=== PATIENT | male | born 1955 | race Caucasian/White ===

== ENCOUNTER 2018-01-25 16:15 | Inpatient (IN) | payer OTHER ==
[~2018-01-25] VITALS: Ht 180.3 cm; Wt 183.4 kg
[~2018-01-25 16:15] MED LIST: AMLO5TAB2 PO; ASPI-496 PO; GLIM4TAB2 PO; ISOS60TA36 PO; LIRA0.6P2 INJ; LISI-167 PO; METO50TA82 PO; SIMV10TA3 PO
[2018-01-25] MEDS ORDERED: ONDANSETRON ODT 4 MG PO PRN (16:30)
[2018-01-25] MEDS ORDERED: ALLO300T PO (16:32)
[2018-01-25] MEDS ORDERED: ATOR40TA78 PO (16:32)
[2018-01-25] MEDS ORDERED: ONDANSETRON ODT 4 MG ONE (17:00)
[2018-01-25] MEDS ORDERED: MORPHINE SULFATE 4 MG/ML, 1ML ONE ×2 (17:00→18:19)
[2018-01-25] MEDS: MORPHINE SULFATE 4 MG/ML, 1ML IVPush PRN ×2 (17:02→18:25)
[2018-01-25] MEDS ORDERED: ETOMIDATE 20 MG/10 ML ONE ×2 (17:11→18:49)
[2018-01-25] MEDS ORDERED: ETOMIDATE 20 MG/10 ML IVPush ONE ×3 (17:30→19:00)
[2018-01-25] MEDS ORDERED: MIDAZOLAM 1 MG/ML, 2ML ONE (18:49)
[2018-01-25] MEDS ORDERED: HYDROmorphone 1 MG/ML, 1ML IVPush PRN (19:00)
[2018-01-25] MEDS ORDERED: MIDAZOLAM 1 MG/ML, 2ML IVPush ONE (19:00)
[2018-01-25] MEDS ORDERED: NS + 20MEQ KCL 1,000 ML IV SCH (22:31)
[2018-01-25] MEDS ORDERED: ONDANSETRON 2MG/ML, 2ML IVPush PRN (23:00)
[2018-01-25] MEDS ORDERED: morphine SULFATE 10 MG/ML, 1ML IVPush PRN (23:00)
[2018-01-25] MEDS ORDERED: DOCUSATE 100 MG CAPSULE PO PRN (23:00)
[2018-01-25] MEDS ORDERED: PROPOFOL 10 MG/ML, 20ML IVPush ONE (23:00)
[2018-01-25] MEDS ORDERED: POLYETHYLENE GLYCOL 17 GM PACKET PO PRN (23:00)
[2018-01-25] MEDS ORDERED: ACETAMINOPHEN 325 MG TABLET PO PRN (23:00)
[2018-01-25] MEDS ORDERED: PROPOFOL 10 MG/ML, 20ML ONE ×2 (23:07)
[2018-01-26] MEDS ORDERED: PROPOFOL 10 MG/ML, 20ML IVPush ONE
[2018-01-26] MEDS ORDERED: HYDROmorphone 2 MG/ML, 1ML ONE (00:05)
[2018-01-26 01:00] VITALS: BP 120/55
[2018-01-26] MEDS: METOPROLOL TARTRATE 50 MG TABLET PO SCH ×3 (01:00→20:38)
[2018-01-26] MEDS: HYDROcodone/APAP 5/325 TABLET PO PRN ×4 (06:35→23:15)
[2018-01-26] MEDS: INSULIN LISPRO 100 UNITS/ML, PEN SQ-INSULIN SCH ×4 (06:40→20:35)
[2018-01-26 07:06] VITALS: BP 124/77
[2018-01-26] MEDS: GLIMEPIRIDE 4 MG TABLET PO SCH (08:03)
[2018-01-26] MEDS: LISINOPRIL 10 MG TABLET PO SCH (08:03)
[2018-01-26] MEDS: SENNA/DOCUSATE TABLET PO SCH (08:03)
[2018-01-26] MEDS: ALLOPURINOL 300 MG TABLET PO SCH (08:03)
[2018-01-26] MEDS: ISOSORBIDE MONONITRATE ER 60 MG TABLET PO SCH (08:04)
[2018-01-26] MEDS: LIRAGLUTIDE 1.8 MG INJ SCH (08:04)
[2018-01-26 12:22] VITALS: BP 111/65
[2018-01-26] MEDS: HEPARIN 5,000 UNITS/ML, 1ML SQ SCH ×2 (15:39→20:38)
[2018-01-26 16:47] LABS: BASOPHILS # (AUTO) 0.03 x10^3/uL (0-0.1); BASOPHILS % (AUTO) 0 % (0-1); EOSINOPHILS # (AUTO) 0.54 x10^3/uL (0-0.4); EOSINOPHILS % (AUTO) 5 % (1-7); LYMPHOCYTES # (AUTO) 2.33 x10^3/uL (1-3.4); LYMPHOCYTES % (AUTO) 20 % (22-44); MD NO; MEAN CORPUSCULAR HEMOGLOBIN 30.4 pg (27.5-34.5); MEAN CORPUSCULAR HGB CONC 33.1 g/dL (33.2-36.2); MEAN CORPUSCULAR VOLUME 91.8 fL (81-97); MEAN PLATELET VOLUME 7.5 fL (7.4-10.4); MONOCYTES # (AUTO) 1.16 x10^3/uL (0.2-0.8); MONOCYTES % (AUTO) 10 % (2-9); NEUTROPHILS # (AUTO) 7.82 x10^3/uL (1.8-6.8); NEUTROPHILS % (AUTO) 66 % (42-75); PLATELET COUNT 179 x10^3/uL (130-400); RED BLOOD COUNT 4.41 x10^6/uL (4.38-5.82); RED CELL DISTRIBUTION WIDTH 14.4 % (9.4-14.8)
[2018-01-26 16:58] LABS: ANION GAP 6 mmol/L (5-15); CALCIUM 8.3 mg/dL (8.5-10.1); CHLORIDE 110 mmol/L (98-107); CREATININE 2.03 mg/dL (0.7-1.3)
[2018-01-26 19:03] VITALS: BP 122/68
[2018-01-26] MEDS: ATORVASTATIN 40 MG TABLET PO SCH (20:38)
[2018-01-27 00:51] VITALS: BP 132/74
[2018-01-27 05:06] LABS: BASOPHILS # (AUTO) 0.06 x10^3/uL (0-0.1); BASOPHILS % (AUTO) 1 % (0-1); EOSINOPHILS % (AUTO) 5 % (1-7); LYMPHOCYTES # (AUTO) 2.53 x10^3/uL (1-3.4); LYMPHOCYTES % (AUTO) 21 % (22-44); MD NO; MEAN CORPUSCULAR HEMOGLOBIN 30.5 pg (27.5-34.5); MEAN CORPUSCULAR HGB CONC 33.3 g/dL (33.2-36.2); MEAN CORPUSCULAR VOLUME 91.5 fL (81-97); MEAN PLATELET VOLUME 7.8 fL (7.4-10.4); MONOCYTES # (AUTO) 1.34 x10^3/uL (0.2-0.8); MONOCYTES % (AUTO) 11 % (2-9); NEUTROPHILS # (AUTO) 7.84 x10^3/uL (1.8-6.8); NEUTROPHILS % (AUTO) 63 % (42-75); PLATELET COUNT 175 x10^3/uL (130-400); RED BLOOD COUNT 4.26 x10^6/uL (4.38-5.82); RED CELL DISTRIBUTION WIDTH 14.5 % (9.4-14.8)
[2018-01-27 05:17] LABS: CHLORIDE 109 mmol/L (98-107)
[2018-01-27 05:38] LABS: ALANINE AMINOTRANSFERASE 21 U/L (12-78); ALBUMIN 3.4 g/dL (3.4-5.0); ALKALINE PHOSPHATASE 79 U/L (45-117); ANION GAP 9 mmol/L (5-15); BILIRUBIN,TOTAL 1.4 mg/dL (0.2-1.0); CALCIUM 8.7 mg/dL (8.5-10.1); CREATININE 1.97 mg/dL (0.7-1.3); TOTAL PROTEIN 6.7 g/dL (6.4-8.2)
[2018-01-27] MEDS: HEPARIN 5,000 UNITS/ML, 1ML SQ SCH ×3 (06:03→23:05)
[2018-01-27] MEDS: INSULIN LISPRO 100 UNITS/ML, PEN SQ-INSULIN SCH ×4 (06:16→21:00)
[2018-01-27 07:05] LABS: HEMOGLOBIN A1C 6.5 % (4.2-6.3)
[2018-01-27] MEDS: LIRAGLUTIDE 1.8 MG INJ SCH (08:16)
[2018-01-27] MEDS: LISINOPRIL 10 MG TABLET PO SCH (08:16)
[2018-01-27] MEDS: ALLOPURINOL 300 MG TABLET PO SCH (08:16)
[2018-01-27] MEDS: ISOSORBIDE MONONITRATE ER 60 MG TABLET PO SCH (08:16)
[2018-01-27] MEDS: GLIMEPIRIDE 4 MG TABLET PO SCH (08:16)
[2018-01-27] MEDS: SENNA/DOCUSATE TABLET PO SCH (08:16)
[2018-01-27] MEDS: METOPROLOL TARTRATE 50 MG TABLET PO SCH ×2 (08:16→21:00)
[2018-01-27 09:20] VITALS: BP 101/66
[2018-01-27] MEDS ORDERED: GABAPENTIN 300 MG CAPSULE PO ONE (10:00)
[2018-01-27] MEDS ORDERED: ONDANSETRON ODT 8 MG PO ONE (10:00)
[2018-01-27] MEDS ORDERED: ACETAMINOPHEN 500 MG TABLET PO ONE (10:00)
[2018-01-27] MEDS ORDERED: OxyconTIN ER 20 MG TAB.ER PO ONE (10:00)
[2018-01-27] MEDS ORDERED: FENTANYL PF 250 MCG/5ML ONE (10:39)
[2018-01-27] MEDS ORDERED: MIDAZOLAM 1 MG/ML, 2ML ONE (10:39)
[2018-01-27] MEDS ORDERED: SUCCINYLCHOLINE 20 MG/ML, 10ML ONE (10:40)
[2018-01-27] MEDS ORDERED: LIDOCAINE-MPF 2% ,5ML ONE (10:41)
[2018-01-27] MEDS ORDERED: PROPOFOL 10 MG/ML, 20ML ONE (10:41)
[2018-01-27] MEDS ORDERED: CEFAZOLIN 1,000 MG ONE ×3 (10:42)
[2018-01-27] MEDS ORDERED: DEXAMETHASONE 4 MG/ML, 1ML ONE ×3 (10:44→14:57)
[2018-01-27] MEDS ORDERED: BUPIVACAINE/PF 0.25% ONE ×2 (10:45)
[2018-01-27] MEDS ORDERED: cloniDINE/PF 100 MCG/ML, 10 ML ONE (10:49)
[2018-01-27] MEDS ORDERED: OxyconTIN ER 10 MG TAB.ER ONE (11:04)
[2018-01-27] MEDS ORDERED: LIDOCAINE-MPF 1%, 2ML ONE (11:07)
[2018-01-27] MEDS ORDERED: LABETALOL 5MG/ML 40ML VIAL ONE (11:46)
[2018-01-27] MEDS ORDERED: LABETALOL 5MG/ML, 20ML IV PRN (12:30)
[2018-01-27] MEDS ORDERED: FENTANYL PF 100 MCG/2ML IV PRN (12:30)
[2018-01-27] MEDS ORDERED: PROMETHAZINE 25 MG/ML, 1ML IV PRN (12:30)
[2018-01-27] MEDS ORDERED: MEPERIDINE/PF 25MG/0.5ML IVPush PRN (12:30)
[2018-01-27] MEDS ORDERED: HALOPERIDOL 5 MG/ML IV PRN (12:30)
[2018-01-27] MEDS ORDERED: OXYcodone 5 MG/5 ML ORAL.SOL UDC PO PRN (12:30)
[2018-01-27] MEDS ORDERED: hydrALAzine 20 MG/ML, 1ML IV PRN (12:30)
[2018-01-27] MEDS ORDERED: MORPHINE SULFATE 4 MG/ML, 1ML IVPush PRN (12:30)
[2018-01-27] MEDS ORDERED: FENTANYL PF 100 MCG/2ML ONE ×2 (12:40→13:41)
[2018-01-27 15:30] VITALS: BP 105/62
[2018-01-27 19:16] VITALS: BP 109/54
[2018-01-27] MEDS: CEFAZOLIN PMX 2GM/50ML 100 ML IVPB SCH (20:05)
[2018-01-27] MEDS: ATORVASTATIN 40 MG TABLET PO SCH (21:46)
[2018-01-28] VITALS: BP 105/61
[2018-01-28 03:26] VITALS: BP 106/55
[2018-01-28] MEDS: CEFAZOLIN PMX 2GM/50ML 100 ML IVPB SCH (04:13)
[2018-01-28 05:57] LABS: MEAN CORPUSCULAR HEMOGLOBIN 30.7 pg (27.5-34.5); MEAN CORPUSCULAR HGB CONC 33.7 g/dL (33.2-36.2); MEAN CORPUSCULAR VOLUME 91.1 fL (81-97); RED BLOOD COUNT 4.05 x10^6/uL (4.38-5.82); RED CELL DISTRIBUTION WIDTH 14.8 % (9.4-14.8)
[2018-01-28 06:07] LABS: CHLORIDE 107 mmol/L (98-107)
[2018-01-28 06:15] LABS: ANION GAP 12 mmol/L (5-15); CALCIUM 8.5 mg/dL (8.5-10.1); CREATININE 3.54 mg/dL (0.7-1.3); MEAN PLATELET VOLUME 7.5 fL (7.4-10.4); PLATELET COUNT 187 x10^3/uL (130-400)
[2018-01-28 06:17] LABS: BASOPHILS # (AUTO) 0.01 x10^3/uL (0-0.1); BASOPHILS % (AUTO) 0 % (0-1); EOSINOPHILS % (AUTO) 0 % (1-7); LYMPHOCYTES # (AUTO) 0.93 x10^3/uL (1-3.4); LYMPHOCYTES % (AUTO) 5 % (22-44); MD SCAN; MONOCYTES # (AUTO) 1.71 x10^3/uL (0.2-0.8); MONOCYTES % (AUTO) 10 % (2-9); NEUTROPHILS # (AUTO) 15.22 x10^3/uL (1.8-6.8); NEUTROPHILS % (AUTO) 85 % (42-75)
[2018-01-28] MEDS: HEPARIN 5,000 UNITS/ML, 1ML SQ SCH ×2 (06:25→15:31)
[2018-01-28] MEDS: INSULIN LISPRO 100 UNITS/ML, PEN SQ-INSULIN SCH ×4 (07:00→20:57)
[2018-01-28 07:58] VITALS: BP 102/58
[2018-01-28] MEDS: SODIUM BICARBONATE 8.4% 75 MEQ in DEXTROSE 5% 1,000 ML IV SCH (08:47)
[2018-01-28] MEDS: ISOSORBIDE MONONITRATE ER 60 MG TABLET PO SCH (08:48)
[2018-01-28] MEDS: SENNA/DOCUSATE TABLET PO SCH (08:48)
[2018-01-28] MEDS: METOPROLOL TARTRATE 50 MG TABLET PO SCH ×2 (08:48→20:49)
[2018-01-28] MEDS: GLIMEPIRIDE 4 MG TABLET PO SCH (08:49)
[2018-01-28] MEDS: LIRAGLUTIDE 1.8 MG INJ SCH (08:49)
[2018-01-28 10:42] LABS: CULTURE INDICATED? YES; MICROSCOPIC INDICATED
[2018-01-28 10:47] LABS: CHLORIDE,URINE RANDOM 36 mmol/L; POTASSIUM,URINE RANDOM 38 mmol/L; SODIUM,URINE RANDOM 47 mmol/L; TOTAL PROTEIN,URINE RANDOM 45 mg/dL (0-12)
[2018-01-28 12:49] VITALS: BP 112/56
[2018-01-28 20:00] VITALS: BP 118/49
[2018-01-28] MEDS: ATORVASTATIN 40 MG TABLET PO SCH (20:49)
[2018-01-29] MEDS: HEPARIN 5,000 UNITS/ML, 1ML SQ SCH ×3 (00:40→16:04)
[2018-01-29] MEDS: SODIUM BICARBONATE 8.4% 75 MEQ in DEXTROSE 5% 1,000 ML IV SCH ×2 (00:41→13:55)
[2018-01-29 02:00] VITALS: BP 154/71
[2018-01-29 05:59] LABS: BASOPHILS # (AUTO) 0.05 x10^3/uL (0-0.1); BASOPHILS % (AUTO) 0 % (0-1); EOSINOPHILS # (AUTO) 0.04 x10^3/uL (0-0.4); EOSINOPHILS % (AUTO) 0 % (1-7); LYMPHOCYTES # (AUTO) 1.78 x10^3/uL (1-3.4); LYMPHOCYTES % (AUTO) 12 % (22-44); MD NO; MEAN CORPUSCULAR HEMOGLOBIN 30.3 pg (27.5-34.5); MEAN CORPUSCULAR HGB CONC 33.1 g/dL (33.2-36.2); MEAN CORPUSCULAR VOLUME 91.6 fL (81-97); MEAN PLATELET VOLUME 7.7 fL (7.4-10.4); MONOCYTES # (AUTO) 1.14 x10^3/uL (0.2-0.8); MONOCYTES % (AUTO) 8 % (2-9); NEUTROPHILS # (AUTO) 11.71 x10^3/uL (1.8-6.8); NEUTROPHILS % (AUTO) 80 % (42-75); PLATELET COUNT 198 x10^3/uL (130-400)
[2018-01-29 06:11] LABS: ANION GAP 9 mmol/L (5-15); CALCIUM 8.1 mg/dL (8.5-10.1); CHLORIDE 108 mmol/L (98-107)
[2018-01-29 06:16] LABS: ALANINE AMINOTRANSFERASE 37 U/L (12-78); ALKALINE PHOSPHATASE 68 U/L (45-117); BILIRUBIN,TOTAL 1.1 mg/dL (0.2-1.0); CREATININE 2.62 mg/dL (0.7-1.3); TOTAL PROTEIN 6.4 g/dL (6.4-8.2)
[2018-01-29 06:49] VITALS: BP 106/65
[2018-01-29] MEDS: INSULIN LISPRO 100 UNITS/ML, PEN SQ-INSULIN SCH ×4 (07:00→21:36)
[2018-01-29] MEDS: ISOSORBIDE MONONITRATE ER 60 MG TABLET PO SCH (07:51)
[2018-01-29] MEDS: METOPROLOL TARTRATE 50 MG TABLET PO SCH ×2 (07:51→21:34)
[2018-01-29] MEDS: LIRAGLUTIDE 1.8 MG INJ SCH (07:51)
[2018-01-29] MEDS: GLIMEPIRIDE 4 MG TABLET PO SCH (07:51)
[2018-01-29] MEDS: SENNA/DOCUSATE TABLET PO SCH (07:51)
[2018-01-29] MEDS: CEFTRIAXONE PMX 2GM/50ML 50 ML IV SCH (10:57)
[2018-01-29 13:08] VITALS: BP 111/58
[2018-01-29 19:45] VITALS: BP_SYST 112; BP_SYST 138; BP_DIAS 70; BP_DIAS 80
[2018-01-29] MEDS: ATORVASTATIN 40 MG TABLET PO SCH (21:34)
[2018-01-30] MEDS: HEPARIN 5,000 UNITS/ML, 1ML SQ SCH ×2 (01:16→09:11)
[2018-01-30 01:19] VITALS: BP 143/77
[2018-01-30] MEDS: SODIUM BICARBONATE 8.4% 75 MEQ in DEXTROSE 5% 1,000 ML IV SCH (06:23)
[2018-01-30] MEDS: INSULIN LISPRO 100 UNITS/ML, PEN SQ-INSULIN SCH ×2 (06:31→11:00)
[2018-01-30 07:09] VITALS: BP 148/76
[2018-01-30 08:38] LABS: BASOPHILS # (AUTO) 0.04 x10^3/uL (0-0.1); BASOPHILS % (AUTO) 0 % (0-1); EOSINOPHILS # (AUTO) 0.32 x10^3/uL (0-0.4); EOSINOPHILS % (AUTO) 3 % (1-7); LYMPHOCYTES # (AUTO) 2.47 x10^3/uL (1-3.4); LYMPHOCYTES % (AUTO) 20 % (22-44); MD NO; MEAN CORPUSCULAR HEMOGLOBIN 30.5 pg (27.5-34.5); MEAN CORPUSCULAR HGB CONC 33.6 g/dL (33.2-36.2); MEAN CORPUSCULAR VOLUME 90.8 fL (81-97); MEAN PLATELET VOLUME 6.9 fL (7.4-10.4); MONOCYTES # (AUTO) 1.28 x10^3/uL (0.2-0.8); MONOCYTES % (AUTO) 10 % (2-9); NEUTROPHILS # (AUTO) 8.33 x10^3/uL (1.8-6.8); NEUTROPHILS % (AUTO) 67 % (42-75); PLATELET COUNT 222 x10^3/uL (130-400); RED BLOOD COUNT 4.02 x10^6/uL (4.38-5.82); RED CELL DISTRIBUTION WIDTH 14.5 % (9.4-14.8)
[2018-01-30 08:48] LABS: ANION GAP 6 mmol/L (5-15); CALCIUM 8.4 mg/dL (8.5-10.1); CHLORIDE 108 mmol/L (98-107); CREATININE 1.89 mg/dL (0.7-1.3)
[2018-01-30] MEDS: LIRAGLUTIDE 1.8 MG INJ SCH (09:00)
[2018-01-30] MEDS: CEFTRIAXONE PMX 2GM/50ML 50 ML IV SCH (09:11)
[2018-01-30] MEDS: ISOSORBIDE MONONITRATE ER 60 MG TABLET PO SCH (09:12)
[2018-01-30] MEDS: METOPROLOL TARTRATE 50 MG TABLET PO SCH (09:12)
[2018-01-30] MEDS: GLIMEPIRIDE 4 MG TABLET PO SCH (09:12)
[2018-01-30] MEDS: SENNA/DOCUSATE TABLET PO SCH (09:12)
[2018-01-30] MEDS ORDERED: CIPR500T87 PO (09:32)
[2018-01-30 10:39] VITALS: BP 128/70
[2018-01-30] MEDS ORDERED: HYDR-3307 PO (12:47)
== END 2018-01-30 12:55 | disposition home or self-care (01) | DRG 493 ==
LOC: ED 16:51 → SUATTDRO 22:12 → EDIP 22:18 → 4NOR 01-26 00:24 → DCLOUNGE 01-30 12:44
PROVIDERS: ADMIT Family Medicine; ATTEND Family Medicine
PROC: 2W3QX1Z Immobilization of Right Lower Leg using Splint (ICD-10-PCS; 2018-01-25)
PROC: 5A09457 Assistance with Respiratory Ventilation, 24-96 Consecutive Hours, Continuous Positive Airway Pressure (ICD-10-PCS; 2018-01-27)
PROC: 0QSJ04Z Reposition Right Fibula with Internal Fixation Device, Open Approach (ICD-10-PCS; principal; 2018-01-27 11:45)
DX: S82.851A Displaced trimalleolar fracture of right lower leg, initial encounter for closed fracture (principal); E87.2 Acidosis; N17.9 Acute kidney failure, unspecified; N39.0 Urinary tract infection, site not specified; Z68.43 Body mass index [BMI] 50.0-59.9, adult; B96.89 Other specified bacterial agents as the cause of diseases classified elsewhere; E11.22 Type 2 diabetes mellitus with diabetic chronic kidney disease; E11.40 Type 2 diabetes mellitus with diabetic neuropathy, unspecified; E66.01 Morbid (severe) obesity due to excess calories; E78.5 Hyperlipidemia, unspecified; G47.33 Obstructive sleep apnea (adult) (pediatric); I12.9 Hypertensive chronic kidney disease with stage 1 through stage 4 chronic kidney disease, or unspecified chronic kidney disease; I27.20 Pulmonary hypertension, unspecified; N18.9 Chronic kidney disease, unspecified; R09.02 Hypoxemia; R32 Unspecified urinary incontinence; S93.04XA Dislocation of right ankle joint, initial encounter; Z72.0 Tobacco use; W18.39XA Other fall on same level, initial encounter; Y93.89 Activity, other specified; Y92.89 Other specified places as the place of occurrence of the external cause; Y99.8 Other external cause status
CPT/HCPCS: 27840; 36415; 76000; 76001; 76770; 80048; 80053; 81001; 82436; 82962; 83036; 83735; 84100; 84133; 84156; 84300; 85025; 87040; 87077; 87086; 87186; 93005; 94660; 96374; 96376; 99152; 99153; C1713; J0690; J0696; J1100; J1170; J1644; J2250; J2704; J3010; J3480; J3490; J7070; Q0162; C1769; J0330; J0735; J2270

== ENCOUNTER 2020-01-31 18:33 | Inpatient (IN) | payer MEDICARE ==
[~2020-01-31] VITALS: Ht 182.9 cm; Wt 193.3 kg
[~2020-01-31 18:33] MED LIST changes: +ALLO300T PO; +AMLO-150 PO; -AMLO5TAB2 PO; +ATOR40TA78 PO; +CIPR500T87 PO; -GLIM4TAB2 PO; +GLIM4TAB8 PO; +HYDR-3246 PO; +SIMV10TA18 PO; -SIMV10TA3 PO
[2020-01-31 21:00] VITALS: BP 157/70
[2020-01-31] MEDS ORDERED: ONDANSETRON 2MG/ML, 2ML IVPush PRN (22:30)
[2020-01-31] MEDS ORDERED: POLYETHYLENE GLYCOL 17 GM PACKET PO PRN (22:30)
[2020-01-31] MEDS: INSULIN LISPRO 100 UNITS/ML, PEN SQ-INSULIN SCH (22:30)
[2020-01-31] MEDS ORDERED: BISACODYL 10 MG SUPP PR PRN (22:30)
[2020-01-31] MEDS ORDERED: ACETAMINOPHEN 325 MG TABLET PO PRN (22:30)
[2020-01-31] MEDS: morphine SULFATE 10 MG/ML, 1ML IVPush PRN (22:57)
[2020-01-31] MEDS: METOPROLOL TARTRATE 50 MG TAB PO SCH (22:59)
[2020-01-31] MEDS: NS + 20MEQ KCL 1,000 ML IV SCH (22:59)
[2020-01-31 23:21] LABS: MEAN CORPUSCULAR HGB CONC 33.1 g/dL (33.2-36.2); MEAN CORPUSCULAR VOLUME 90.5 fL (81-97); MEAN PLATELET VOLUME 7.2 fL (7.4-10.4); PLATELET COUNT 204 x10^3/uL (130-400); RED BLOOD COUNT 4.23 x10^6/uL (4.38-5.82); RED CELL DISTRIBUTION WIDTH 15.2 % (9.4-14.8)
[2020-01-31 23:29] LABS: ALANINE AMINOTRANSFERASE 14 U/L (12-78); ANION GAP 8 mmol/L (5-15); CALCIUM 7.7 mg/dL (8.5-10.1); CHLORIDE 105 mmol/L (98-107); CREATININE 2.96 mg/dL (0.7-1.3)
[2020-01-31 23:31] LABS: ALKALINE PHOSPHATASE 94 U/L (45-117); BILIRUBIN,TOTAL 1.1 mg/dL (0.2-1.0); TOTAL PROTEIN 6.9 g/dL (6.4-8.2)
[2020-01-31 23:51] LABS: BASOPHILS # (AUTO) 0.04 x10^3/uL (0-0.1); BASOPHILS % (AUTO) 0 % (0-1); EOSINOPHILS # (AUTO) 0.06 x10^3/uL (0-0.4); EOSINOPHILS % (AUTO) 0 % (1-7); LYMPHOCYTES # (AUTO) 1.82 x10^3/uL (1-3.4); LYMPHOCYTES % (AUTO) 13 % (22-44); MD SCAN; MONOCYTES # (AUTO) 1.31 x10^3/uL (0.2-0.8); MONOCYTES % (AUTO) 9 % (2-9); NEUTROPHILS # (AUTO) 11.11 x10^3/uL (1.8-6.8); NEUTROPHILS % (AUTO) 78 % (42-75)
[2020-02-01 01:29] VITALS: BP 113/63
[2020-02-01] MEDS: morphine SULFATE 10 MG/ML, 1ML IVPush PRN ×4 (02:03→20:34)
[2020-02-01 06:18] LABS: MEAN CORPUSCULAR HGB CONC 32.8 g/dL (33.2-36.2); MEAN CORPUSCULAR VOLUME 91.6 fL (81-97); MEAN PLATELET VOLUME 7.6 fL (7.4-10.4); PLATELET COUNT 191 x10^3/uL (130-400); RED BLOOD COUNT 4.14 x10^6/uL (4.38-5.82); RED CELL DISTRIBUTION WIDTH 14.9 % (9.4-14.8)
[2020-02-01 06:29] LABS: ANION GAP 8 mmol/L (5-15); CALCIUM 7.7 mg/dL (8.5-10.1); CHLORIDE 106 mmol/L (98-107); CREATININE 3.03 mg/dL (0.7-1.3)
[2020-02-01] MEDS: INSULIN LISPRO 100 UNITS/ML, PEN SQ-INSULIN SCH ×4 (07:00→20:28)
[2020-02-01 07:32] LABS: BASOPHILS # (AUTO) 0.03 x10^3/uL (0-0.1); BASOPHILS % (AUTO) 0 % (0-1); EOSINOPHILS # (AUTO) 0.13 x10^3/uL (0-0.4); EOSINOPHILS % (AUTO) 1 % (1-7); LYMPHOCYTES # (AUTO) 1.86 x10^3/uL (1-3.4); LYMPHOCYTES % (AUTO) 14 % (22-44); MD SCAN; MONOCYTES # (AUTO) 1.54 x10^3/uL (0.2-0.8); MONOCYTES % (AUTO) 11 % (2-9); NEUTROPHILS # (AUTO) 9.93 x10^3/uL (1.8-6.8); NEUTROPHILS % (AUTO) 74 % (42-75)
[2020-02-01 07:44] VITALS: BP 100/54
[2020-02-01] MEDS: CEFTRIAXONE PMX 1GM/50ML 50 ML IV SCH (08:00)
[2020-02-01] MEDS: METOPROLOL TARTRATE 50 MG TAB PO SCH ×2 (08:00→20:26)
[2020-02-01] MEDS: SENNA/DOCUSATE TABLET PO SCH (08:00)
[2020-02-01] MEDS: ALLOPURINOL 300 MG TABLET PO SCH (08:00)
[2020-02-01] MEDS: ISOSORBIDE MONONITRATE ER 60 MG TABLET PO SCH (08:00)
[2020-02-01] MEDS: NS + 20MEQ KCL 1,000 ML IV SCH ×2 (09:59→17:40)
[2020-02-01] MEDS ORDERED: POTASSIUM CHLORIDE 20 MEQ TAB.ER.PRT PO ONE (12:30)
[2020-02-01] MEDS ORDERED: MAGNESIUM SULFATE PMX 2GM/50ML 50 ML IV ONE (12:30)
[2020-02-01 13:53] VITALS: BP 129/71
[2020-02-01 15:44] LABS: TROPONIN I < 0.015 ng/mL (0.000-0.045)
[2020-02-01 19:12] VITALS: BP 135/64
[2020-02-01] MEDS ORDERED: ATORVASTATIN 40 MG TABLET PO SCH (21:00)
[2020-02-01 21:38] LABS: TROPONIN I < 0.015 ng/mL (0.000-0.045)
[2020-02-02] MEDS: NS + 20MEQ KCL 1,000 ML IV SCH ×2 (00:55→14:20)
[2020-02-02 01:16] VITALS: BP 150/61
[2020-02-02 04:54] LABS: BASOPHILS # (AUTO) 0.02 x10^3/uL (0-0.1); BASOPHILS % (AUTO) 0 % (0-1); EOSINOPHILS # (AUTO) 0.41 x10^3/uL (0-0.4); EOSINOPHILS % (AUTO) 4 % (1-7); LYMPHOCYTES # (AUTO) 1.82 x10^3/uL (1-3.4); LYMPHOCYTES % (AUTO) 17 % (22-44); MD NO; MEAN CORPUSCULAR HEMOGLOBIN 30.2 pg (27.5-34.5); MEAN CORPUSCULAR HGB CONC 32.9 g/dL (33.2-36.2); MEAN CORPUSCULAR VOLUME 91.6 fL (81-97); MEAN PLATELET VOLUME 7.3 fL (7.4-10.4); MONOCYTES # (AUTO) 1.09 x10^3/uL (0.2-0.8); MONOCYTES % (AUTO) 10 % (2-9); NEUTROPHILS % (AUTO) 69 % (42-75); PLATELET COUNT 234 x10^3/uL (130-400); RED BLOOD COUNT 4.36 x10^6/uL (4.38-5.82); RED CELL DISTRIBUTION WIDTH 15.3 % (9.4-14.8)
[2020-02-02 04:55] LABS: ANION GAP 7 mmol/L (5-15); CALCIUM 8.2 mg/dL (8.5-10.1); CHLORIDE 105 mmol/L (98-107); CREATININE 2.89 mg/dL (0.7-1.3)
[2020-02-02 04:59] LABS: TROPONIN I < 0.015 ng/mL (0.000-0.045)
[2020-02-02 06:59] VITALS: BP 152/75
[2020-02-02] MEDS: INSULIN LISPRO 100 UNITS/ML, PEN SQ-INSULIN SCH ×3 (07:00→16:00)
[2020-02-02] MEDS: CEFTRIAXONE PMX 1GM/50ML 50 ML IV SCH (07:43)
[2020-02-02] MEDS: ISOSORBIDE MONONITRATE ER 60 MG TABLET PO SCH (07:47)
[2020-02-02] MEDS: METOPROLOL TARTRATE 50 MG TAB PO SCH (07:47)
[2020-02-02] MEDS: SENNA/DOCUSATE TABLET PO SCH (07:48)
[2020-02-02] MEDS: ALLOPURINOL 300 MG TABLET PO SCH (07:48)
[2020-02-02] MEDS ORDERED: POTASSIUM CHLORIDE 20 MEQ TAB.ER.PRT PO ONE ×2 (09:00→18:00)
[2020-02-02 12:29] VITALS: BP 127/77
[2020-02-02] MEDS ORDERED: CHLORHEXIDINE 15 ML UDC ONE (12:53)
[2020-02-02] MEDS ORDERED: CHLORHEXIDINE 15 ML UDC MM ONE (13:00)
[2020-02-02] MEDS ORDERED: MIDAZOLAM 1 MG/ML, 2ML ONE (13:24)
[2020-02-02] MEDS ORDERED: FENTANYL PF 250 MCG/5ML ONE (13:25)
[2020-02-02] MEDS ORDERED: PROPOFOL 50 ML ONE (13:27)
[2020-02-02] MEDS ORDERED: OMNIPAQUE 350 MG/ML, 50 ML BOTTLE ONE (14:11)
[2020-02-02] MEDS ORDERED: FENTANYL PF 100 MCG/2ML ONE (14:27)
[2020-02-02] MEDS ORDERED: DEXAMETHASONE 4 MG/ML, 1ML ONE (15:21)
[2020-02-02] MEDS ORDERED: PROPOFOL 10 MG/ML, 50ML ONE (15:21)
[2020-02-02] MEDS ORDERED: SUCCINYLCHOLINE 20 MG/ML, 10ML ONE (15:21)
[2020-02-02] MEDS ORDERED: ONDANSETRON 2MG/ML, 2ML ONE (15:21)
[2020-02-02] MEDS ORDERED: CEFD300C37 PO (19:00)
== END 2020-02-02 20:00 | disposition home or self-care (01) | DRG 660 ==
LOC: 4NE 21:30
PROVIDERS: ADMIT Hospitalist; ATTEND Hospitalist
PROC: 0T778DZ Dilation of Left Ureter with Intraluminal Device, Via Natural or Artificial Opening Endoscopic (ICD-10-PCS; 2020-02-02)
PROC: BT1F1ZZ Fluoroscopy of Left Kidney, Ureter and Bladder using Low Osmolar Contrast (ICD-10-PCS; principal; 2020-02-02 13:00)
DX: N13.6 Pyonephrosis (principal); Z68.43 Body mass index [BMI] 50.0-59.9, adult; I50.30 Unspecified diastolic (congestive) heart failure; I13.0 Hypertensive heart and chronic kidney disease with heart failure and stage 1 through stage 4 chronic kidney disease, or unspecified chronic kidney disease; N17.9 Acute kidney failure, unspecified; E66.01 Morbid (severe) obesity due to excess calories; G89.29 Other chronic pain; E11.42 Type 2 diabetes mellitus with diabetic polyneuropathy; E11.22 Type 2 diabetes mellitus with diabetic chronic kidney disease; N18.3 Chronic kidney disease, stage 3 (moderate); J44.9 Chronic obstructive pulmonary disease, unspecified; E87.6 Hypokalemia; D72.829 Elevated white blood cell count, unspecified; G47.33 Obstructive sleep apnea (adult) (pediatric); Z53.29 Procedure and treatment not carried out because of patient's decision for other reasons; Z20.828 Contact with and (suspected) exposure to other viral communicable diseases
CPT/HCPCS: 36415; 71045; 74420; 80048; 80053; 82962; 83036; 83605; 83735; 84132; 84484; 85025; 87040; 87635; C8929; G0378; J0696; J1100; J2250; J2405; J2704; J3010; J3480; Q9957; Q9967; C2617; J0330; J1815; J2270; J3475

== ENCOUNTER → 2020-02-22 | Outpatient (CLI) | payer MEDICARE ==
[~2020-02-22] MED LIST changes: +AMLO5TAB10 PO; +ATOR20TA86 PO; +CEFD300C37 PO; +HYDR-3245 PO; +ISOS120T4 PO; +LISI40TA PO
[2020-02-22 14:21] LABS: BASOPHILS # (AUTO) 0.03 x10^3/uL (0-0.1); BASOPHILS % (AUTO) 0 % (0-1); EOSINOPHILS # (AUTO) 0.26 x10^3/uL (0-0.4); EOSINOPHILS % (AUTO) 3 % (1-7); LYMPHOCYTES # (AUTO) 1.94 x10^3/uL (1-3.4); LYMPHOCYTES % (AUTO) 19 % (22-44); MD NO; MEAN CORPUSCULAR HEMOGLOBIN 29.9 pg (27.5-34.5); MEAN CORPUSCULAR HGB CONC 33.1 g/dL (33.2-36.2); MEAN CORPUSCULAR VOLUME 90.3 fL (81-97); MEAN PLATELET VOLUME 7.1 fL (7.4-10.4); MONOCYTES # (AUTO) 0.92 x10^3/uL (0.2-0.8); MONOCYTES % (AUTO) 9 % (2-9); NEUTROPHILS # (AUTO) 7.13 x10^3/uL (1.8-6.8); NEUTROPHILS % (AUTO) 69 % (42-75); PLATELET COUNT 221 x10^3/uL (130-400); RED BLOOD COUNT 4.68 x10^6/uL (4.38-5.82); RED CELL DISTRIBUTION WIDTH 14.7 % (9.4-14.8)
[2020-02-22 14:23] LABS: INTERNATIONAL NORMALIZED RATIO 0.94 (0.93-1.1)
[2020-02-22 14:26] LABS: ALANINE AMINOTRANSFERASE 18 U/L (12-78); ALBUMIN 3.2 g/dL (3.4-5.0); ANION GAP 7 mmol/L (5-15); CHLORIDE 107 mmol/L (98-107); CREATININE 2.36 mg/dL (0.7-1.3)
[2020-02-22 14:28] LABS: ALKALINE PHOSPHATASE 111 U/L (45-117); BILIRUBIN,TOTAL 1.2 mg/dL (0.2-1.0); TOTAL PROTEIN 7.9 g/dL (6.4-8.2)
[2020-02-22 15:11] LABS: MICROSCOPIC INDICATED
== END | disposition home or self-care (01) ==
LOC: STAR 12:57
PROVIDERS: ATTEND Urology
DX: Z01.818 Encounter for other preprocedural examination (principal); N20.0 Calculus of kidney; R94.31 Abnormal electrocardiogram [ECG] [EKG]
CPT/HCPCS: 36415; 80053; 81001; 85025; 85610; 87086; 93005

== ENCOUNTER 2020-03-01 09:13 | Day surgery (SDC) | payer MEDICARE ==
[~2020-03-01] VITALS: Ht 180.3 cm; Wt 186.0 kg
[2020-03-01] MEDS ORDERED: MIDAZOLAM 1 MG/ML, 2ML ONE (10:12)
[2020-03-01] MEDS ORDERED: FENTANYL PF 100 MCG/2ML ONE (10:12)
[2020-03-01 10:20] VITALS: BP 146/81
[2020-03-01] MEDS ORDERED: CHLORHEXIDINE 15 ML UDC MM ONE (10:30)
[2020-03-01] MEDS ORDERED: LACTATED RINGERS 1,000 ML IV SCH (11:00)
[2020-03-01] MEDS ORDERED: LIDOCAINE-MPF 1%, 2ML INFIL ONE (11:00)
[2020-03-01 11:05] LABS: BASOPHILS # (AUTO) 0.05 x10^3/uL (0-0.1); BASOPHILS % (AUTO) 1 % (0-1); EOSINOPHILS # (AUTO) 0.49 x10^3/uL (0-0.4); EOSINOPHILS % (AUTO) 6 % (1-7); LYMPHOCYTES # (AUTO) 2.12 x10^3/uL (1-3.4); LYMPHOCYTES % (AUTO) 24 % (22-44); MD NO; MEAN CORPUSCULAR HEMOGLOBIN 28.8 pg (27.5-34.5); MEAN CORPUSCULAR HGB CONC 31.5 g/dL (33.2-36.2); MEAN CORPUSCULAR VOLUME 91.3 fL (81-97); MEAN PLATELET VOLUME 6.6 fL (7.4-10.4); MONOCYTES # (AUTO) 0.61 x10^3/uL (0.2-0.8); MONOCYTES % (AUTO) 7 % (2-9); NEUTROPHILS # (AUTO) 5.42 x10^3/uL (1.8-6.8); NEUTROPHILS % (AUTO) 62 % (42-75); PLATELET COUNT 302 x10^3/uL (130-400); RED BLOOD COUNT 4.65 x10^6/uL (4.38-5.82); RED CELL DISTRIBUTION WIDTH 15.4 % (9.4-14.8)
[2020-03-01] MEDS ORDERED: TETRACYCLINE PO (11:06)
[2020-03-01] MEDS ORDERED: CEFAZOLIN 1,000 MG ONE (11:38)
[2020-03-01] MEDS ORDERED: PROPOFOL 10 MG/ML, 20ML ONE (11:38)
[2020-03-01] MEDS ORDERED: SUCCINYLCHOLINE 20 MG/ML, 10ML ONE (11:38)
[2020-03-01] MEDS ORDERED: ONDANSETRON 2MG/ML, 2ML ONE (11:38)
[2020-03-01] MEDS ORDERED: HYDROmorphone 1 MG/ML, 1ML INJ IVPush PRN (12:30)
[2020-03-01] MEDS ORDERED: MEPERIDINE/PF 25MG/0.5ML IVPush PRN (12:30)
[2020-03-01] MEDS ORDERED: LABETALOL 5MG/ML, 20ML IV PRN (12:30)
[2020-03-01] MEDS ORDERED: ONDANSETRON 2MG/ML, 2ML IVPush PRN (12:30)
[2020-03-01] MEDS ORDERED: OXYcodone 5 MG/5 ML ORAL.SOL UDC PO PRN (12:30)
[2020-03-01] MEDS ORDERED: hydrALAzine 20 MG/ML, 1ML IV PRN (12:30)
[2020-03-01] MEDS ORDERED: ACETAMINOPHEN 325 MG TABLET PO PRN (12:30)
[2020-03-01] MEDS ORDERED: FENTANYL PF 100 MCG/2ML IV PRN (12:30)
== END 2020-03-01 15:05 | disposition home or self-care (01) ==
LOC: OUT 09:13
PROVIDERS: ATTEND Urology
DX: N20.1 Calculus of ureter (principal); Z11.59 Encounter for screening for other viral diseases; I13.0 Hypertensive heart and chronic kidney disease with heart failure and stage 1 through stage 4 chronic kidney disease, or unspecified chronic kidney disease; I50.9 Heart failure, unspecified; E11.22 Type 2 diabetes mellitus with diabetic chronic kidney disease; N18.9 Chronic kidney disease, unspecified; E66.01 Morbid (severe) obesity due to excess calories; G47.33 Obstructive sleep apnea (adult) (pediatric); F17.220 Nicotine dependence, chewing tobacco, uncomplicated; Z68.43 Body mass index [BMI] 50.0-59.9, adult; Z79.899 Other long term (current) drug therapy; Z82.49 Family history of ischemic heart disease and other diseases of the circulatory system; Z83.3 Family history of diabetes mellitus; Z79.82 Long term (current) use of aspirin
CPT/HCPCS: 36415; 52353; 74018; 82360; 82962; 85025; 87635; 88300; J0330; J0690; J2250; J2405; J2704; J3010; J7120; 76000